=== PATIENT | female | born 1940 | race Caucasian/White ===

== ENCOUNTER 2018-10-28 10:55 | Outpatient (REF) | payer MEDICARE, OTHER, SELFPAY | END 2018-10-28 11:15 | LOC: NCHCN 10:55 | PROVIDERS: PCP Physician Assistant; Visit Provider Internal Medicine | DX: R19.7 Diarrhea, unspecified (principal) | CPT/HCPCS: 87329; 83630; 87324 ==

== ENCOUNTER 2019-03-22 08:44 | Outpatient (REF) | payer MEDICARE, OTHER, SELFPAY | END 2019-03-22 09:04 | LOC: NCHCN 08:44 | PROVIDERS: PCP Physician Assistant; Visit Provider Internal Medicine | DX: R19.7 Diarrhea, unspecified (principal) | CPT/HCPCS: 87329; 86674 ==